=== PATIENT | male | born 1975 | race American Indian/Alaskan Native ===

== ENCOUNTER 2023-07-30 20:16 | Emergency (ER) | payer MEDICAID ==
[2023-07-30 20:47] LABS: BASOPHILS PERCENT AUTO 0.4 % (0.2-1.2); EOSINOPHILS ABSOLUTE AUTO 0.5 x10^3/uL (0.0-0.5); EOSINOPHILS PERCENT AUTO 4.9 % (0.0-4.0); HEMATOCRIT 37.3 % (40.0-52.0); HEMOGLOBIN 12.5 g/dL (14.0-18.0); IMMATURE GRAN ABSOLUTE AUTO 0.01 x10^3/uL (0.00-0.07); LYMPHOCYTES ABSOLUTE AUTO 2.6 x10^3/uL (1.0-4.8); LYMPHOCYTES PERCENT AUTO 27.2 % (25.0-50.0); MEAN CORPUSCULAR HEMOGLOBIN 31.2 pg (26.0-32.0); MEAN CORPUSCULAR HGB CONC 33.5 g/dL (32.0-36.0); MONOCYTES ABSOLUTE AUTO 1.3 x10^3/uL (0.0-0.8); NEUTROPHILS PERCENT AUTO 53.4 % (50.0-80.0); PLATELET COUNT,PLT 199 x10^3/uL (130-400); RED BLOOD CELL COUNT 4.01 x10^6/uL (4.5-6.0); WHITE BLOOD CELL COUNT,WBC 9.4 x10^3/uL (4.0-10.0)
[2023-07-30 21:09] LABS: A/G RATIO 0.8; ALBUMIN 3.2 g/dL (3.4-5.0); ANION GAP 13.5 mmol/L (5-15); BILIRUBIN TOTAL 0.2 mg/dL (0.2-1.0); C-REACTIVE PROTEIN 2.38 mg/dL (<=0.30); CALCIUM 8.6 mg/dL (8.5-10.1); CREATININE 0.7 mg/dL (0.70-1.30); EST CRCL DRUG DOSING (CG) 161.89 mL/min; POTASSIUM,K 3.5 mmol/L (3.5-5.1); PROTEIN TOTAL,TP 7.2 g/dL (6.4-8.2)
[2023-07-30] MEDS ORDERED: Iopamidol 612 MG/ML 100 ML Bottle IVPUSH ONE (21:27)
== END 2023-07-31 | disposition home or self-care (01) ==
LOC: VM.ED 20:16
DX: K59.00 Constipation, unspecified (principal); Z79.899 Other long term (current) drug therapy
CPT/HCPCS: 36415; 74177; 80053; 85025; 86140; 99285; Q9967

== ENCOUNTER 2025-09-04 02:04 | Emergency (ER) | payer MEDICAID | END 2025-09-04 03:00 | LOC: SUPCPDRO 02:04 → VM.ED 02:04 | DX: S60.512A Abrasion of left hand, initial encounter (principal); Z79.899 Other long term (current) drug therapy; W07.XXXA Fall from chair, initial encounter | CPT/HCPCS: 99284 ==

== ENCOUNTER 2025-09-04 03:59 | Emergency (ER) | payer MEDICARE, MEDICAID ==
[2025-09-04 04:58] LABS: BASOPHILS ABSOLUTE AUTO 0.0 x10^3/uL (0.0-0.2); BASOPHILS PERCENT AUTO 0.2 % (0.2-1.2); EOSINOPHILS ABSOLUTE AUTO 0.1 x10^3/uL (0.0-0.5); EOSINOPHILS PERCENT AUTO 0.5 % (0.0-4.0); IMMATURE GRAN ABSOLUTE AUTO 0.06 x10^3/uL (0.00-0.07); IMMATURE GRAN PERCENT AUTO 0.30 % (0.00-0.43); LYMPHOCYTES ABSOLUTE AUTO 1.8 x10^3/uL (1.0-4.8); LYMPHOCYTES PERCENT AUTO 10.3 % (25.0-50.0); MONOCYTES ABSOLUTE AUTO 1.0 x10^3/uL (0.0-0.8); MONOCYTES PERCENT AUTO 5.5 % (2.0-11.0); NEUTROPHILS ABSOLUTE AUTO 14.8 x10^3/uL (1.8-7.7); NEUTROPHILS PERCENT AUTO 83.2 % (50.0-80.0); PLATELET COUNT,PLT 322 x10^3/uL (130-400); RED BLOOD CELL COUNT 5.17 x10^6/uL (4.5-6.0)
[2025-09-04 05:06] LABS: WHITE BLOOD CELL COUNT,WBC 17.8 x10^3/uL (4.0-10.0)
[2025-09-04 05:10] LABS: INR 1.1 (0.9-1.1); PTT,PARTIAL THROMBOPLSTIN TIME 27.6 SEC (24.3-33.4)
[2025-09-04 05:13] LABS: A/G RATIO 0.74; ALANINE AMINOTRANSFERASE,ALT 35.0 U/L (16-63); ASPARTATE AMNIOTRANSFERASE,AST 29.0 U/L (15-37); BILIRUBIN TOTAL 0.3 mg/dL (0.2-1.0); BLOOD UREA NITROGEN,BUN 10.0 mg/dL (7-18); CARBON DIOXIDE,CO2 22.0 mmol/L (21-32); CHLORIDE,CL 97.0 mmol/L (98-107); CREATININE 0.8 mg/dL (0.70-1.30); EST CRCL DRUG DOSING (CG) 138.64 mL/min; ETHANOL BLOOD MEDICAL 215.0 mg/dL (0-3); GLUCOSE RANDOM 114.0 mg/dL (70-99); POTASSIUM,K 3.9 mmol/L (3.5-5.1); PROTEIN TOTAL,TP 8.7 g/dL (6.4-8.2); SODIUM,NA 131.0 mmol/L (136-145)
[2025-09-04 05:14] LABS: ESTIMATED GFR 109.0 mL/min (>=60)
== END 2025-09-04 07:33 ==
LOC: SUPCPDRO 03:59 → VM.ED 03:59
DX: S60.512A Abrasion of left hand, initial encounter (principal); W19.XXXA Unspecified fall, initial encounter
CPT/HCPCS: 36415; 70450; 72125; 73600-LT; 80053; 80307; 85025; 85610; 85730; 99283; 99284